=== PATIENT | female | born 1945 | race Caucasian/White ===

== ENCOUNTER → 2016-10-19 | Outpatient (CLI) | payer BC ==
[~2016-10-19] MED LIST: BIOT1CAP3 PO; BRIM0.1S OP; CHOL100010 PO; EPP3/2 IM; FESO8TAB PO; LATA0.5S OP; LEVO75TA25 PO; MULT-506 PO
--- NOTE | 2016-10-19 11:27 | DIAGNOSTIC IMAGING REPORT ---
TWO VIEW CHEST CLINICAL HISTORY: Breast cancer. FINDINGS: PA and lateral chest radiographs are compared to study dated 08/24/2015. The cardiomediastinal silhouette is unremarkable. There is mild atherosclerotic calcification of the thoracic aorta. The lungs and pleural spaces are clear. There is no pneumothorax. The skeletal structures are osteopenic. Mild degenerative change and scoliosis is seen in the thoracic spine. IMPRESSION: No active disease in the chest. Electronically signed by: Amor Damon M.D. 10/19/2016 11:26 AM Dictated Date/Time: 10/19/2016 11:25 AM
[2016-10-19 12:20] LABS: BASO % 0.6 %; BASO ABS # 0.04 K/uL (0-0.2); COMPLETE YES; EOS % 0.6 %; HEMATOCRIT 40.8 % (37-47); IG% 0.2 %; LYMPH % 23.1 %; LYMPH ABS # 1.47 K/uL (1.2-3.4); MEAN CELL VOLUME 91.5 fL (80-100); MEAN CORPUSCULAR HEMOGLOBIN 30.5 pg (25-34); MEAN CORPUSCULAR HGB CONC 33.3 g/dl (32-36); MEAN PLATELET VOLUME 10.5 fL (7.4-10.4); MONO % 6.9 %; NEUT % 68.6 %; PLATELET COUNT 235 K/uL (130-400); RED BLOOD COUNT 4.46 M/uL (4.2-5.4); WHITE BLOOD COUNT 6.35 K/uL (4.8-10.8)
[2016-10-19 17:56] LABS: ALKALINE PHOSPHATASE 85 U/L (45-117); ALT/SGPT 37 U/L (12-78); AST/SGOT 30 U/L (15-37); BLOOD UREA NITROGEN 11 mg/dl (7-18); BUN/CREATININE RATIO 15.2 (10-20); CALCIUM 8.9 mg/dl (8.5-10.1); CARBON DIOXIDE 30 mmol/L (21-32); CHLORIDE 108 mmol/L (98-107); GLUCOSE 129 mg/dl (70-99); POTASSIUM 3.9 mmol/L (3.5-5.1); SODIUM 143 mmol/L (136-145)
[2016-10-19 17:57] LABS: ALB/GLOB RATIO 0.9 (0.9-2)
== END | disposition home or self-care (01) ==
LOC: C.LABPVFM 10:55
PROVIDERS: ATTEND Nurse Practitioner Family
DX: C50.919 Malignant neoplasm of unspecified site of unspecified female breast (principal)

== ENCOUNTER → 2016-10-19 | Outpatient (CLI) | payer BC ==
--- NOTE | 2016-10-19 16:15 | MAMMOGRAPHY REPORT ---
UNILATERAL LEFT DIGITAL SCREENING MAMMOGRAM TOMOSYNTHESIS WITH CAD: 10/19/2016 CLINICAL HISTORY: Routine screening. Patient has no complaints. TECHNIQUE: Left breast tomosynthesis in addition to standard 2D mammography was performed. Current st udy was also evaluated with a Computer Aided Detection (CAD) system. COMPARISON: Comparison is made to exams dated: 05/26/2015 mammogram, 05/20/2014 mammogram, 05/12/2013 mammogram, 11/18/2012 mammogram, and 05/22/2012 mammogram - [facility]. BREAST COMPOSITION: The tissue of the left breast is heterogeneously dense, which may obscure small masses. FINDINGS: There is a newly visualized enlarged 16 mm lymph node projecting over the superior left pe ctoralis muscle on the MLO view. Further evaluation with targeted ultrasound is recommended. There is a questionable area of architectural distortion in the lateral, middle one third of the left breas t, only seen on the CC tomosynthesis images (slice 32), for which additional spot compression tomosyn thesis views and possibly ultrasound are recommended. There are stable grouped punctate microcalcifications in the 7:00 left breast. No other suspicious ma ss, architectural distortion or cluster of microcalcifications is seen. IMPRESSION: ACR BI-RADS CATEGORY 0: INCOMPLETE EVALUATION: NEED ADDITIONAL IMAGING EVALUATION The newly visualized enlarged left axillary lymph node, and possible architectural distortion in the lateral left breast need additional imaging evaluation. The patient will be called to schedule an appointment. Approximately 10% of breast cancers are not detected with mammography. A negative mammographic report should not delay biopsy if a clinically suggestive mass is present. Sharon Zurita M.D. ay/:10/19/2016 15:52:16 Bottom Scrubber: Laurie JIM(R)(M), [facility] letter sent: Addl Imaging 0 BI-RADS Code: ACR BI-RADS Category 0: Incomplete Evaluation: Need Additional Imaging Evaluation
== END | disposition home or self-care (01) ==
LOC: C.MAMM 14:07
PROVIDERS: ATTEND Nurse Practitioner Family
DX: Z12.31 Encounter for screening mammogram for malignant neoplasm of breast (principal); R92.8 Other abnormal and inconclusive findings on diagnostic imaging of breast; R59.0 Localized enlarged lymph nodes; C50.919 Malignant neoplasm of unspecified site of unspecified female breast

== ENCOUNTER → 2016-10-27 | Outpatient (CLI) | payer BC ==
--- NOTE | 2016-10-27 16:01 | MAMMOGRAPHY REPORT ---
UNILATERAL LEFT DIGITAL DIAGNOSTIC MAMMOGRAM TOMOSYNTHESIS AND TARGETED LEFT ULTRASOUND: 10/27/2016 CLINICAL HISTORY: Callback from screening mammogram for possible left breast architectural distortion and an abnormal left axillary lymph node. Remote history of right breast cancer status post chemora diation and surgery. TECHNIQUE: Breast tomosynthesis in addition to standard 2D mammography was performed. Spot compress ion left CC and MLO 2-D and tomosynthesis images were obtained. COMPARISON: Comparison is made to exams dated: 10/19/2016 mammogram, 05/26/2015 mammogram, 05/20/2014 ma mmogram, 05/12/2013 mammogram, 11/18/2012 mammogram, and 05/22/2012 mammogram - [facility]. BREAST COMPOSITION: The tissue of the left breast is heterogeneously dense, which may obscure small masses. FINDINGS: The questionable area of architectural distortion seen within the left lateral breast on t he cc view does not persist on the additional views. The tissue in this region has the appearance of normal fibroglandular tissue without a suspicious mass or architectural distortion noted. Targeted ultrasound was performed of the left axilla. There are 2 adjacent abnormal left axillary ly mph nodes, which are abnormally rounded in shape and lack a fatty hilum. The largest lymph node dalia ures 1.8 x 1.6 x 2 cm and the adjacent smaller lymph node measures 7 x 11 mm. One morphologically no rmal 1.7 cm lymph node is also seen, which has a normal fatty hilum and thin peripheral cortex. The adenopathy is indeterminate and ultrasound guided core needle biopsy is recommended for further evalu ation. Targeted ultrasound was performed of the left lateral breast in the region of the questionable raúl ectural distortion. The ultrasound exam is limited due to markedly heterogeneous breast parenchyma o n ultrasound with multiple areas of hypoechoic shadowing noted, however, no clear mass or other suspi cious finding is seen on ultrasound. IMPRESSION: ACR BI-RADS CATEGORY 4: SUSPICIOUS, TARGETED ULTRASOUND ACR BI-RADS CATEGORY 4: SUSPICIO US 1. Two adjacent abnormal left axillary lymph nodes, the largest measuring 2 cm in size. Findings are suspicious and ultrasound-guided core needle biopsy is recommended for further evaluation. 2. The questionable left lateral breast architectural distortion does not persist on the additional views. No definite corresponding sonographic abnormality is evident although the ultrasound exam is limited due to markedly heterogeneous tissue. Findings are benign and felt to represent normal fibro glandular tissue. 3. If the pathology of the lymph node yields metastatic breast cancer, would recommend breast MRI to evaluate for possible occult malignancy. A phone call was made to the physician's office to confirm faxed results were received. The patient has been verbally notified of the results. She tentatively scheduled the biopsy before leaving the [facility]. Approximately 10% of breast cancers are not detected with mammography. A negative mammographic report should not delay biopsy if a clinically suggestive mass is present. Leonie Acosta M.D. ah/:10/27/2016 14:57:53 Flat Lock Machine Operator: Anita PINO)(Rambo), [facility] letter sent: Abnormal 4/5 BI-RADS Code: ACR BI-RADS Category 4: Suspicious Ultrasound BI-RADS: ACR BI-RADS Category 4: Suspici ous
== END | disposition home or self-care (01) ==
LOC: C.MAMM 13:45
PROVIDERS: ATTEND Nurse Practitioner Family
DX: N64.9 Disorder of breast, unspecified (principal); R59.0 Localized enlarged lymph nodes

== ENCOUNTER → 2016-11-02 | Outpatient (CLI) | payer BC ==
--- NOTE | 2016-11-02 11:47 | Discharge Instructions ---
Discharge Instructions Procedure Procedure Date: Nov 02, 2016. Reason for visit: Lt Axillary Node. Discharge Discharge Date: Nov 02, 2016. Discharge Diagnosis: status post breast biopsy Instructions Activity Recommendations: Additional Limitations (see below) Return to School/Work: no limitations Recommended Home Diet: No Limitations Provider Instructions: ACTIVITY RECOMMENDATIONS: * No lifting, pushing, pulling or exercising the affected side for three days. RETURN TO SCHOOL/WORK: * You may return to work/school after the procedure, but do not perform any strenuous activities for 24 to 48 hours. MEDICATIONS: * Tylenol (two 325 mg) every four to six hours if needed for mild pain (if not allergic to Tylenol). DIET: * Resume previous diet. SPECIAL CARE INSTRUCTIONS: * Keep biopsy site dry for 24 hours. May shower after 24 hours, but do not soak (bathe) incision. * May remove Tegaderm (plastic patch) tomorrow AFTER showering. * Leave the steri-strips on for one week. Allow the steri-strips to fall off by themselves. If not off after one week, you may remove them. You may place a Bandaid crosswise over the strips, if desired. * Apply ice 10 minutes on and 10 minutes off as needed. * Wear a bra at bedtime to sleep more comfortably for 2-3 days. * Your referring physician should have the results after approximately 5 to 7 business days. * Call for unusual bleeding, fever, drainage, etc or if you have any questions call during normal business hours or after hours call Dr Acosta, . FOLLOW UP VISIT: Follow-up with Referring Physician as scheduled. Allergies Coded Allergies: Hydrocodone (Verified Allergy, Mild, SEVERE NAUSEA AND VOMITING, 01/22/12) Shantal Khan Recommendations: Call your doctor if: * Temperature above 101 degrees * Pain not relieved by pain medicine ordered * There is increased drainage or redness from any incision * You have any unanswered questions or concerns. Your Doctors Instructions noted above were prepared by provider Leonie Acosta. Patient Signature Section: Patient Instructions Signature Page Kim Sagastume Patient (or Guardian) Signature/Date: I have read and understand the instructions given to me by my caregivers. Caregiver/RN/Doctor Signature/Date: The above-named patient and/or guardian has received patient instructions on this date. + Original Patient Signature Page (only) stays with chart. Please make copy for patient.
--- NOTE | 2016-11-02 14:41 | MAMMOGRAPHY REPORT ---
THIS REPORT HAS BEEN AMENDED. ULTRASOUND GUIDED BIOPSY LEFT BREAST: 11/02/2016 CLINICAL HISTORY: Abnormal left axillary lymph nodes. PATIENT CONSENT: The procedure, risks and benefits were discussed with the patient and informed writt en consent was obtained. A timeout was performed immediately prior to the procedure. PROCEDURE DESCRIPTION: With ultrasound guidance, aseptic technique, and lidocaine as the local anesth etic (1% lidocaine to anesthetize the skin and 1% lidocaine with epinephrine to anesthetize the deepe r tissues), the largest abnormal left axillary lymph node was sampled 4 times with a 14-gauge Achieve biopsy needle. Immediately thereafter, with ultrasound guidance, aseptic technique, and lidocaine a s the local anesthetic, a metallic localizer clip was placed into the lymph node. Direct pressure wa s applied to the site immediately post procedure and hemostasis was achieved. Postprocedure unilater al mammograms were performed to confirm clip placement. The patient tolerated the procedure without c omplication. She was given wound care instructions. The specimens were sent to pathology for analysi s. COMPARISON: Comparison is made to exams dated: 10/27/2016 ultrasound, 10/27/2016 mammogram, 10/19/2016 lee mogram, 05/26/2015 mammogram, 05/20/2014 mammogram, and 05/12/2013 mammogram - [facility]. IMPRESSION: ULTRASOUND GUIDED BIOPSY Ultrasound guided core needle biopsy of one of the abnormal left axillary lymph nodes, with clip plac ement. The patient will receive pathology results from her referring provider. Leonie Acosta M.D. ah/:11/02/2016 11:49:20 Slab Conditioner Supervisor: Saima JMI(Maximino)(Rambo), [facility] AMENDMENT: 11/11/2016 Leonie Acosta M.D. Pathology from ultrasound-guided biopsy of an abnormal left axillary lymph node was reviewed on 2016. The pathology shows metastatic carcinoma of breast origin. The pathology is concordant with t imaging findings. Consider breast MRI to evaluate for possible occult malignancy of the ipsilater al breast.
--- NOTE | 2016-11-02 16:11 | MAMMOGRAPHY REPORT ---
UNILATERAL LEFT DIGITAL DIAGNOSTIC MAMMOGRAM: 11/02/2016 CLINICAL HISTORY: Status post ultrasound guided biopsy of a left axillary lymph node. TECHNIQUE: A postprocedural left MLO view was obtained. COMPARISON: Comparison is made to exams dated: 10/27/2016 mammogram, 10/19/2016 mammogram, 05/26/2015 mamm ogram, 05/20/2014 mammogram, and 05/12/2013 mammogram - [facility]. BREAST COMPOSITION: The tissue of the left breast is heterogeneously dense, which may obscure small masses. FINDINGS: A new biopsy marker clip is seen within the biopsied abnormal left axillary lymph node. N o significant postbiopsy hematoma is seen. IMPRESSION: POST PROCEDURE IMAGING FOR MARKER PLACEMENT New biopsy marker clip status post ultrasound-guided biopsy of an abnormal left axillary lymph node. Pathology results are pending. Approximately 10% of breast cancers are not detected with mammography. A negative mammographic report should not delay biopsy if a clinically suggestive mass is present. Leonie Acosta M.D. ah/:11/02/2016 11:54:33 Transmission Design Engineer: Saima JIM(R)(M), [facility] BI-RADS Code: Post Procedure Imaging For Marker Placement
== END | disposition home or self-care (01) ==
LOC: C.MAMM 11:06
PROVIDERS: ATTEND Nurse Practitioner Family
DX: N64.89 Other specified disorders of breast (principal); C50.612 Malignant neoplasm of axillary tail of left female breast

== ENCOUNTER → 2016-11-20 | Outpatient (CLI) | payer BC ==
[~2016-11-20] MED LIST changes: +PROPOFOL IV EMULSION 10 MG/ML 20 ML VIAL IV ONE
--- NOTE | 2016-11-20 11:10 | DIAGNOSTIC IMAGING REPORT ---
PET/CT HISTORY: Breast carcinoma BREAST CANCER TECHNIQUE: PET/CT was performed from the base of the skull through the pelvis following the intravenous administration of 15.4 mCi of F18-FDG. Non-contrast CT imaging was performed over the same range without breath-hold for attenuation correction of PET images and anatomic correlation, but not for primary interpretation as it is not of standard diagnostic quality. CT DOSE: COMPARISON: None. FINDINGS: HEAD AND NECK: No significant cervical adenopathy. Metabolically active right thyroid nodule. CHEST: 1.2 cm anterior chest wall nodule/lymph node have an SUV characteristics of 2.5-2.3 cm metabolically active nodule high left axilla the density of 3.5. Prior right mastectomy. Several low-level metabolically active nodes in the high axillary regions bilaterally with a mild increase in activity. Pleural-based nodule anterior right chest measuring 1.3 cm image 71. This demonstrates SUVs of 2.0 small focus of increased metabolic activity left T10 vertebral body. There is no definite CT correlate. Additional parenchymal nodularity of the right hemithorax primarily in the right perihilar distribution less than 6 mm and demonstrating no increase in activity possibly due to size consideration. Increased activity right adrenal ABDOMEN/PELVIS: Increased activity right adrenal gland mild hyperplastic changes present although well-defined nodule is not appreciated. Physiologic activity within the gastrointestinal and genitourinary tracts. Unremarkable activity characteristics of the liver as well as spleen. Slight increase in activity medial aspects of the iliac wings bilaterally with SUVs to 2.2 unremarkable urinary tracts activity. MUSCULOSKELETAL: Small focal area of increased activity posterior aspect left T10 as well as medial iliac wings. Although no CT correlate is present, early metastatic change is not excluded. IMPRESSION: 1. Postoperative changes consistent with a right mastectomy. 2. Bilateral axillary adenopathy with right hemithoracic pulmonary nodularity. 3. Probable developing metastatic process right adrenal. 4. Probable developing bony metastatic change involving T10 and medial iliac wings bilaterally 5. Metabolically active nodule right thyroid versus parathyroid Electronically signed by: Darius Mckeon M.D. 11/20/2016 11:08 AM Dictated Date/Time: 11/20/2016 10:52 AM
== END | disposition home or self-care (01) ==
LOC: C.PET 08:28
PROVIDERS: ATTEND Nurse Practitioner Family
DX: C50.912 Malignant neoplasm of unspecified site of left female breast (principal)

== ENCOUNTER → 2016-11-23 | Outpatient (CLI) | payer BC ==
[~2016-11-23] MED LIST changes: +GADAVIST IV PRN; -PROPOFOL IV EMULSION 10 MG/ML 20 ML VIAL IV ONE
--- NOTE | 2016-11-23 16:19 | MAMMOGRAPHY REPORT ---
BREAST MRI OF BOTH BREASTS : 11/23/2016 CLINICAL HISTORY: Remote history of right breast cancer status post right mastectomy. Recent biopsy of a left axillary lymph node which yielded metastatic adenocarcinoma of breast primary. COMPARISON: Comparison is made to exams dated: 11/02/2016 ultrasound biopsy, 10/27/2016 mammogram, 2016 mammogram, 05/26/2015 mammogram, and 05/20/2014 mammogram - [facility]. PET/CT dated 11/20/2016. Technique: The patient was placed prone in a dedicated breast imaging coil. Precontrast axial T1-aster ghted, axial T2-weighted fat saturation, and axial T1-weighted fat saturation images were obtained. After the administration of 6.5 mL of Gadavist IV contrast, sequential T1-weighted fat saturation jillian ges were obtained. Subtraction images were obtained of the dynamic contrast enhanced sequences, and 3-D reformations were performed. The Bidgely software was used for kinetic analysis. Findings: The patient is status post right mastectomy. There is moderate background parenchymal enhancement in volving the left breast. There are no suspicious enhancing masses or areas of abnormal non-mass enha ncement seen within the left breast or at the right mastectomy bed. There is an abnormal left axillary lymph node which measures 2.5 x 1.6 cm. This was recently biopsie d and yielded metastatic disease (series 501 image 34). Additionally, there are abnormally enlarged right infraclavicular lymph nodes, the largest measuring 15 mm (series 501 image 19); this shows upta ke on the recent PET/CT. Additionally, there are abnormal right internal mammary lymph nodes, includ ing a 14 mm lymph node on series 501 image 35, a 14 mm lymph node on image 42, and an 11 mm lymph nod e on image 56. The abnormal lymph nodes are concerning for metastatic disease. No left internal lee jasmina adenopathy is evident. IMPRESSION: ACR BI-RADS CATEGORY 6: KNOWN BIOPSY PROVEN MALIGNANCY 1. No MRI evidence of malignancy in the left breast or at the right mastectomy bed. 2. Abnormal left axillary lymph node, consistent with biopsy-proven metastatic disease. Additionall y, there is right infraclavicular and right internal mammary adenopathy, concerning for metastatic di sease. Leonie Acosta M.D. /:11/23/2016 15:27:14 Wire Setter: vice president of talent management, [facility] BI-RADS Code: ACR BI-RADS Category 6: Known Biopsy Proven Malignancy
== END | disposition home or self-care (01) ==
LOC: C.MRI 13:35
PROVIDERS: ATTEND Nurse Practitioner Family
DX: C50.911 Malignant neoplasm of unspecified site of right female breast (principal); C77.3 Secondary and unspecified malignant neoplasm of axilla and upper limb lymph nodes; Z90.11 Acquired absence of right breast and nipple

== ENCOUNTER → 2017-02-05 | Outpatient (CLI) | payer BC ==
[~2017-02-05] MED LIST changes: -GADAVIST IV PRN
[2017-02-05 18:40] LABS: THYROID STIMULATING HORMONE 0.033 uIu/ml (0.300-4.500)
== END | disposition home or self-care (01) ==
LOC: C.LABPVFM 11:30
PROVIDERS: ATTEND Nurse Practitioner
DX: E03.9 Hypothyroidism, unspecified (principal)

== ENCOUNTER → 2017-02-19 | Outpatient (CLI) | payer BC ==
[2017-02-19 12:54] LABS: BLOOD UREA NITROGEN 16 mg/dl (7-18); BUN/CREATININE RATIO 21.7 (10-20); CALCIUM 9.6 mg/dl (8.5-10.1); CARBON DIOXIDE 23 mmol/L (21-32); CHLORIDE 107 mmol/L (98-107); CREATININE 0.72 mg/dl (0.60-1.20); GLUCOSE 114 mg/dl (70-99); POTASSIUM 4.2 mmol/L (3.5-5.1); SODIUM 139 mmol/L (136-145)
[2017-02-19 12:58] LABS: CHOLESTEROL 194 mg/dl (0-200); CHOLESTEROL/HDL RATIO 2.9; HDL CHOLESTEROL 68 mg/dl; LDL CHOLESTEROL CALCULATED 104 mg/dl; TRIGLYCERIDES 112 mg/dl (0-150); VERY LOW DENSITY LIPOPROT CALC 22 mg/dl
== END | disposition home or self-care (01) ==
LOC: C.LABPVFM 09:02
PROVIDERS: ATTEND Nurse Practitioner
DX: E03.9 Hypothyroidism, unspecified (principal); R03.0 Elevated blood-pressure reading, without diagnosis of hypertension

== ENCOUNTER → 2017-03-12 | Outpatient (CLI) | payer BC ==
--- NOTE | 2017-03-12 13:43 | DIAGNOSTIC IMAGING REPORT ---
PET/CT HISTORY: BREAST CANCER TECHNIQUE: PET/CT was performed from the base of the skull through the pelvis following the intravenous administration of 13.13 mCi of F18-FDG. Non-contrast CT imaging was performed over the same range without breath-hold for attenuation correction of PET images and anatomic correlation, but not for primary interpretation as it is not of standard diagnostic quality. CT DOSE: COMPARISON: PET CT 11/20/2016. FINDINGS: HEAD AND NECK: Persistent 1.3 cm focus of moderate to intense FDG uptake within the midline of the adenoid tonsils. No FDG avid cervical lymphadenopathy. CHEST: The right subpectoral and right internal mammary lymphadenopathy has significantly improved/resolved in the interval. Dominant right subpectoral lymph node measures 7 x 4 mm, previously measuring 12 x 8 mm. No enlarged internal mammary lymph nodes. There has also been interval improvement in the left axillary lymphadenopathy. Dominant left axillary lymph node measures 1.6 x 0.7 cm previously measuring 2.3 x 1.0 cm. FDG uptake associated with this lymph node has completely resolved. There is minimal FDG uptake associated with a morphologically normal-appearing left axillary lymph node on image 49. This demonstrates an SUV max of 1.1 which is similar to the prior study. No FDG avid mediastinal or hilar lymph nodes. Stable 4 mm nodule within the right lung apex on image 51. The cluster of nodules at the junction of the right minor major fissures on images 69 and 70 have improved. Dominant nodule measures 4 mm, previously measuring 6 mm. These do not demonstrate abnormal FDG uptake but are likely below the threshold for PET imaging. No new pulmonary nodules identified. ABDOMEN/PELVIS: Below the diaphragm, tracer is distributed physiologically in the gastrointestinal and genitourinary tracts. There is no significant lymphadenopathy and no FDG-avid disease. Diminished focal FDG uptake within the posterior sigmoid colon on image 176. This favors physiologic uptake within the bowel. MUSCULOSKELETAL: There is no FDG-avid or destructive bone lesion. IMPRESSION: 1. Significant improvement in the FDG avid disease as described above as well as decrease in size in the pulmonary nodules. 2. The only remaining site of FDG uptake is seen within a normal-appearing left axillary lymph node. 3. No new focal areas of FDG uptake identified. Electronically signed by: Marquis Carrero M.D. 03/12/2017 1:42 PM Dictated Date/Time: 03/12/2017 1:21 PM
== END | disposition home or self-care (01) ==
LOC: C.PET 08:35
PROVIDERS: ATTEND Nurse Practitioner Family
DX: C50.912 Malignant neoplasm of unspecified site of left female breast (principal)

== ENCOUNTER → 2017-06-15 | Outpatient (CLI) | payer BC ==
[2017-06-15 18:43] LABS: BASO % 0.5 %; BASO ABS # 0.04 K/uL (0-0.2); EOS % 1.5 %; EOS ABS # 0.11 K/uL (0-0.5); HEMATOCRIT 43.2 % (37-47); HEMOGLOBIN 14.5 g/dL (12.0-16.0); IG# 0.01 K/uL (0.00-0.02); LYMPH % 25.2 %; LYMPH ABS # 1.87 K/uL (1.2-3.4); MEAN CELL VOLUME 90.8 fL (80-100); MEAN CORPUSCULAR HEMOGLOBIN 30.5 pg (25-34); MEAN CORPUSCULAR HGB CONC 33.6 g/dl (32-36); MEAN PLATELET VOLUME 11.2 fL (7.4-10.4); MONO % 7.5 %; MONO ABS # 0.56 K/uL (0.11-0.59); NEUT % 65.2 %; NEUT ABS # 4.84 K/uL (1.4-6.5); PLATELET COUNT 276 K/uL (130-400); RED CELL DISTRIBUTION WIDTH CV 13.5 % (11.5-14.5); RED CELL DISTRIBUTION WIDTH SD 44.3 fL (36.4-46.3); WHITE BLOOD COUNT 7.43 K/uL (4.8-10.8)
[2017-06-15 18:45] LABS: ALBUMIN 3.9 gm/dl (3.4-5.0); ALT/SGPT 35 U/L (12-78); AST/SGOT 28 U/L (15-37); BLOOD UREA NITROGEN 15 mg/dl (7-18); CALCIUM 8.8 mg/dl (8.5-10.1); CARBON DIOXIDE 27 mmol/L (21-32); CREATININE 0.81 mg/dl (0.60-1.20); GLUCOSE 152 mg/dl (70-99); SODIUM 138 mmol/L (136-145)
[2017-06-15 18:48] LABS: ALKALINE PHOSPHATASE 64 U/L (45-117); TOTAL PROTEIN 7.7 gm/dl (6.4-8.2)
== END | disposition home or self-care (01) ==
LOC: C.LABPVFM 14:06
PROVIDERS: ATTEND Nurse Practitioner Family
DX: C50.912 Malignant neoplasm of unspecified site of left female breast (principal); E03.9 Hypothyroidism, unspecified

== ENCOUNTER → 2017-08-02 | Outpatient (CLI) | payer BC | END | disposition home or self-care (01) | LOC: C.LABPVFM 11:26 | PROVIDERS: ATTEND Nurse Practitioner Family | DX: E03.9 Hypothyroidism, unspecified (principal) ==

== ENCOUNTER → 2017-08-27 | Outpatient (CLI) | payer BC ==
[2017-08-27 17:59] LABS: BASO % 0.8 %; BASO ABS # 0.06 K/uL (0-0.2); EOS % 1.3 %; HEMATOCRIT 42.1 % (37-47); HEMOGLOBIN 14.1 g/dL (12.0-16.0); IG# 0.02 K/uL (0.00-0.02); LYMPH % 19.8 %; LYMPH ABS # 1.51 K/uL (1.2-3.4); MEAN CELL VOLUME 92.3 fL (80-100); MEAN CORPUSCULAR HEMOGLOBIN 30.9 pg (25-34); MEAN CORPUSCULAR HGB CONC 33.5 g/dl (32-36); MEAN PLATELET VOLUME 11.4 fL (7.4-10.4); MONO % 8.3 %; MONO ABS # 0.63 K/uL (0.11-0.59); NEUT % 69.5 %; PLATELET COUNT 244 K/uL (130-400); RED CELL DISTRIBUTION WIDTH CV 14.1 % (11.5-14.5); RED CELL DISTRIBUTION WIDTH SD 47.2 fL (36.4-46.3); WHITE BLOOD COUNT 7.62 K/uL (4.8-10.8)
[2017-08-27 18:29] LABS: ALBUMIN 3.6 gm/dl (3.4-5.0); ALT/SGPT 33 U/L (12-78); BLOOD UREA NITROGEN 16 mg/dl (7-18); CALCIUM 8.8 mg/dl (8.5-10.1); CARBON DIOXIDE 30 mmol/L (21-32); CREATININE 0.92 mg/dl (0.60-1.20); GLUCOSE 112 mg/dl (70-99); SODIUM 139 mmol/L (136-145)
[2017-08-27 18:32] LABS: ALKALINE PHOSPHATASE 56 U/L (45-117); AST/SGOT 25 U/L (15-37); TOTAL PROTEIN 7.1 gm/dl (6.4-8.2)
== END | disposition home or self-care (01) ==
LOC: C.LABPVFM 13:33
PROVIDERS: ATTEND Nurse Practitioner Family
DX: C50.912 Malignant neoplasm of unspecified site of left female breast (principal)

== ENCOUNTER → 2017-09-06 | Outpatient (CLI) | payer BC ==
[~2017-09-06] MED LIST changes: +OPTIRAY 320 IV PRN
--- NOTE | 2017-09-06 16:52 | DIAGNOSTIC IMAGING REPORT ---
CT (CHEST) THORAX WITH CLINICAL HISTORY: 71 years-old Female presenting with BREAST CA. TECHNIQUE: Multidetector CT imaging of the chest was performed after the administration of intravenous contrast. IV contrast: 93 mL of Optiray 320. A dose lowering technique was used consistent with the principles of ALARA (as low as reasonably achievable). COMPARISON: PET/CT from 03/12/2017. CT DOSE (mGy.cm): The estimated cumulative dose is 907.31. FINDINGS: Intern Product Marketing Manager topogram: Unremarkable. On soft tissue windows, normal thyroid. Postsurgical changes of right mastectomy. No axillary, supraclavicular, hilar, or mediastinal lymphadenopathy. Atherosclerosis of the aorta. Normal heart size. No pericardial or pleural effusion. Density of the liver suggests hepatic steatosis. On lung windows, mild smooth interlobular septal thickening evident at the apices. Several ill-defined nodular punctate opacities evident in the right upper lobe. Additionally, a focal solid peripheral/subpleural 4 mm nodule is evident anteriorly at the right apex (series 4 image 64), unchanged. Minimal dependent groundglass opacities likely atelectasis. Fat-containing right Bochdalek hernia noted. Airways patent. On bone windows, no destructive osseous lesion. IMPRESSION: 1. No convincing evidence of intrathoracic metastatic disease. No lymphadenopathy. 2. Minimal nodular opacities in the right upper lobe as well as a 4 mm solid right apical nodule, nonspecific. These are not convincing for metastatic foci. Attention on follow-up. 3. Postsurgical changes of right mastectomy. 4. Hepatic steatosis. Electronically signed by: Roscoe Stiles M.D. 09/06/2017 4:51 PM Dictated Date/Time: 09/06/2017 4:44 PM
--- NOTE | 2017-09-06 16:53 | DIAGNOSTIC IMAGING REPORT ---
ABDOMEN AND PELVIS CT WITH IV AND ORAL CONTRAST CT DOSE: 907.31 mGy.cm HISTORY: Follow-up study in a patient with history of breast cancer. Subsequent treatment strategy. BREAST CA TECHNIQUE: Multiaxial CT images of the abdomen and pelvis were performed following the use of intravenous and oral contrast. A dose lowering technique was utilized adhering to the principles of ALARA. COMPARISON STUDY: Chest CT of same day, PET CT 03/12/2017. FINDINGS: Postoperative changes from prior right mastectomy partially imaged. Mild subsegmental bibasilar atelectasis. No new pulmonary nodules of the imaged lung bases are identified. There is no pneumatosis or pneumoperitoneum identified. Imaged inferior cardiac chambers are mildly enlarged with trace pericardial effusion. Decreased attenuation of the liver suggests possible fatty infiltration. No suspicious hepatic mass lesions identified to suggest metastasis. Gallbladder is mildly contracted. Spleen, pancreas and adrenal glands are unremarkable. Kidneys, ureters and urinary bladder are unremarkable. Uterus and adnexa are within normal limits. Aorta is normal in course and caliber with mild atherosclerotic plaquing. Patent IVC. No bulky adenopathy. No bowel obstruction or focal bowel wall thickening identified. Nondistention of the splenic flexure, descending colon and rectosigmoid. No acute inflammatory changes. Soft tissues are unremarkable. Bones appear intact. No suspicious lytic or blastic bony lesions identified. Moderate to severe facet arthrosis at L5-S1. Large subcortical cystic changes of the right acetabulum. Multilevel Schmorl's nodes about the lumbar spine. IMPRESSION: 1. No acute intra-abdominal or intrapelvic abnormality identified. 2. No evidence of metastatic disease or pathologic adenopathy. Electronically signed by: Marlon Cabrera M.D. 09/06/2017 4:52 PM Dictated Date/Time: 09/06/2017 4:44 PM
== END | disposition home or self-care (01) ==
LOC: C.CTS 15:25
PROVIDERS: ATTEND Nurse Practitioner Family
DX: R91.8 Other nonspecific abnormal finding of lung field (principal); C50.912 Malignant neoplasm of unspecified site of left female breast

== ENCOUNTER → 2017-12-17 | Outpatient (CLI) | payer BC ==
[~2017-12-17] MED LIST changes: -OPTIRAY 320 IV PRN
== END | disposition home or self-care (01) ==
LOC: C.MAMM 09:14
PROVIDERS: ATTEND Nurse Practitioner Family
DX: C50.912 Malignant neoplasm of unspecified site of left female breast (principal)

== ENCOUNTER → 2017-12-20 | Outpatient (CLI) | payer BC ==
[2017-12-20 12:40] LABS: BASO % 0.6 %; BASO ABS # 0.04 K/uL (0-0.2); EOS % 3.4 %; EOS ABS # 0.23 K/uL (0-0.5); HEMATOCRIT 42.1 % (37-47); IG# 0.02 K/uL (0.00-0.02); LYMPH % 17.8 %; LYMPH ABS # 1.22 K/uL (1.2-3.4); MEAN CELL VOLUME 92.5 fL (80-100); MEAN CORPUSCULAR HEMOGLOBIN 30.8 pg (25-34); MEAN CORPUSCULAR HGB CONC 33.3 g/dl (32-36); MONO % 6.9 %; MONO ABS # 0.47 K/uL (0.11-0.59); NEUT ABS # 4.87 K/uL (1.4-6.5); PLATELET COUNT 234 K/uL (130-400); RED CELL DISTRIBUTION WIDTH CV 13.5 % (11.5-14.5); RED CELL DISTRIBUTION WIDTH SD 45.4 fL (36.4-46.3); WHITE BLOOD COUNT 6.85 K/uL (4.8-10.8)
[2017-12-20 12:58] LABS: ALBUMIN 3.8 gm/dl (3.4-5.0); ALKALINE PHOSPHATASE 63 U/L (45-117); ALT/SGPT 28 U/L (12-78); AST/SGOT 26 U/L (15-37); BLOOD UREA NITROGEN 20 mg/dl (7-18); CALCIUM 9.1 mg/dl (8.5-10.1); CARBON DIOXIDE 29 mmol/L (21-32); CREATININE 0.93 mg/dl (0.60-1.20); GLUCOSE 110 mg/dl (70-99); POTASSIUM 4.1 mmol/L (3.5-5.1); SODIUM 138 mmol/L (136-145); TOTAL PROTEIN 7.4 gm/dl (6.4-8.2)
== END | disposition home or self-care (01) ==
LOC: C.LABPVFM 10:03
PROVIDERS: ATTEND Nurse Practitioner Family
DX: C50.912 Malignant neoplasm of unspecified site of left female breast (principal)